=== PATIENT | female | born 1965 | race Caucasian/White ===

== ENCOUNTER → 2017-08-01 09:02 | Outpatient (CLI) | payer BC, SELFPAY ==
--- NOTE | 2017-08-01 09:16 | MM_ITS ---
MM Dig screening mamm BI w/CAD CAD Screening ORDERING PHYSICIAN : [facility] INDICATION: 52-year-old with no new complaints no hormones. Family history. Half sister with breast cancer: 53 years COMPARISON: August 2013 mammogram and ultrasound. Also February 2011 and November 2008 bilateral mammogram studies TECHNIQUE: Standard CC and MLO images were obtained. R2 CAD reviewed. Bilateral axillary cc view included FINDINGS: Moderately dense breast bilaterally with mild asymmetry. RIGHT BREAST:No new findings of significant concern LEFT BREAST: . No new findings of significant concern. Slightly more pronounced fibroglandular elements towards the deep lateral left breast on cc view dissipates on the axillary cc view, and are in keeping, & consistent with previous studies. Follow-up in one year adequate bilateral IMPRESSION: . Stable mammogram no new areas of significant concern . Bilateral follow-up in one year recommended BI-RADS Category: 2 Benign Finding(s) RECOMMENDED FOLLOW-UP: 1YR - 1 YEAR FOLLOW-UP (A letter has been sent to the patient regarding results of the study.) In
== END ==
PROVIDERS: Family Provider Internal Medicine Adolescent Medicine; PCP Nurse Practitioner Family; Visit Provider Nurse Practitioner Obstetrics & Gynecology
DX: Z12.31 Encounter for screening mammogram for malignant neoplasm of breast (principal)
CPT/HCPCS: 77067

== ENCOUNTER → 2017-09-22 11:32 | Outpatient (CLI) | payer BC, SELFPAY ==
[2017-09-22 14:39] LABS: Chol/HDL Ratio 3.8 (1-3.5); Cholesterol 286 mg/dL (140-200); HDL Cholesterol 75 mg/dL (29-89); LDL Cholesterol 175 mg/dL (0-130); Thyroid Stimulating Hormone 0.92 uIU/ml (0.358-3.740); Triglycerides 178 mg/dL (30-200); VLDL Cholesterol 36 mg/dL (0-40)
== END ==
PROVIDERS: Visit Provider Nurse Practitioner Family
DX: R07.89 Other chest pain (principal); E78.5 Hyperlipidemia, unspecified
CPT/HCPCS: 36415; 80061; 84443

== ENCOUNTER → 2017-09-27 12:11 | Outpatient (CLI) | payer BC, SELFPAY ==
--- NOTE | 2017-09-27 12:21 | NM_ITS ---
History and Indications: Hypertension, hyperlipidemia, chest pain and fatigue. Procedure: Patient exercised on Orion protocol 9 minutes, resting heart rate was 67 bpm resting blood pressure 131/73, with exercise maximum heart rate achieved was 1 46 bpm which is equal to 87% of the maximum predicted heart rate and a blood pressure was 190/90. Test was started due to shortness of breath patient denied any complained of chest pain. Patient has good exercise capacity achieved 10.1mets of workload on treadmill, the blood pressure response to exercise was adequate. Electrocardiogram: Resting electrocardiogram show sinus rhythm, with exercise there is less than 1.[address] segment depression noted from the baseline EKG. The EKG portion of the exercise Myoview is negative for ischemia. Cardiac stress and resting SPECT images: Cardiac stress and rest SPECT images were obtained using technetium 99 Myoview 32.7 mCi at stress and 10.3 mCi at rest. Gated SPECT further analysis of segmental wall motion and calculation of the ejection fraction also done. Cardiac stress and rest SPECT images show uniform myocardial activity without segmental perfusion abnormality, computer derived ejection fraction is 59% with no obvious regional wall motion abnormality right ventricle is normal size and contractility. Conclusion: 1. The EKG portion of the exercise Myoview is negative for ischemia. Patient has good exercise capacity achieved 10.1mets of workload on treadmill, the blood pressure response to exercise was adequate, there was no exercise-induced chest discomfort. 2. No obvious scintigraphic evidence of reversible ischemia seen, obturator derived ejection fraction 59% with no obvious regional wall motion abnormality, right ventricle is normal size and contractility. 3. Normal exercise Myoview study.
--- NOTE | 2017-09-27 12:41 | HMH.ITSHM ---
LAMOTRIAINE FLOXETINE DIAZEPAM AMLODIPINE LISINOPRIL MELATONIN NAPROXEN
== END ==
PROVIDERS: Family Provider Internal Medicine Adolescent Medicine; PCP Nurse Practitioner Family; Visit Provider Nurse Practitioner Family
DX: R07.89 Other chest pain (principal); I10 Essential (primary) hypertension; E78.5 Hyperlipidemia, unspecified
CPT/HCPCS: 78452; 93017; A9502

== ENCOUNTER → 2018-02-07 07:52 | Outpatient (CLI) | payer BC, SELFPAY ==
[2018-02-07 08:26] LABS: Basophils # 0.1 K/mm3 (0-0.2); Basophils % 0.9 % (0.1-2.0); Eosinophils # 0.3 K/mm3 (0.0-0.4); Hematocrit 40.6 % (37.0-47.0); Hemoglobin 13.1 g/dL (12.2-16.2); Lymphocytes # 2.2 K/mm3 (0.7-4.5); Mean Corpuscular HGB Conc 32.3 g/dL (31.8-35.4); Mean Corpuscular Hemoglobin 29.8 pg (27.0-31.2); Mean Corpuscular Volume 92.2 fl (81-99); Mean Platelet Volume 7.5 fl (7.4-10.4); Monocytes # 0.5 K/mm3 (0.1-1.0); Monocytes % 7.2 % (1.7-9.3); Neutrophils # 3.6 K/mm3 (1.8-7.8); Neutrophils % 53.8 % (37.0-80.0); Platelet Count 242 K/mm3 (142-424); Red Cell Distribution Width 13.3 % (11.5-17.5); White Blood Count 6.7 K/mm3 (4.8-10.8)
[2018-02-07 08:59] LABS: Alanine Aminotransferase 28 U/L (12-78); Albumin/Globulin Ratio 1.3 (1.1-1.8); Alkaline Phosphatase 122 U/L (46-116); Anion Gap 13.7 mEq/L (5-15); Aspartate Amino Transferase 11 U/L (15-37); Bilirubin,Total 0.4 mg/dL (0.2-1.0); Blood Urea Nitrogen 19 mg/dL (7-18); Calcium 9.5 mg/dL (8.5-10.1); Carbon Dioxide 30 mmol/L (21.0-32.0); Chloride 105 mmol/L (98-107); Chol/HDL Ratio 2.5 (1-3.5); Cholesterol 210 mg/dL (140-200); Creatinine,Serum 0.88 mg/dL (0.55-1.02); Estimated Glomerular Filt Rate 67 ml/min (>60); GFR (African American) 81 ML/MIN (>60); Globulin 3.2 gm/dl (1.3-3.2); Glucose 111 mg/dL (74-106); HDL Cholesterol 83 mg/dL (29-89); LDL Cholesterol 114 mg/dL (0-130); Potassium 3.7 mmoL/L (3.5-5.1); Sodium 145 mmol/L (136-145); Total Protein,Serum 7.2 gm/dL (6.4-8.2); Triglycerides 66 mg/dL (30-200); VLDL Cholesterol 13 mg/dL (0-40)
== END ==
PROVIDERS: PCP Internal Medicine Adolescent Medicine; Visit Provider Nurse Practitioner Family
DX: E78.5 Hyperlipidemia, unspecified (principal); I10 Essential (primary) hypertension; R05 Cough
CPT/HCPCS: 36415; 80053; 80061; 85025

== ENCOUNTER → 2018-06-01 11:02 | Outpatient (CLI) | payer MEDICAID, SELFPAY ==
[2018-06-01 11:29] LABS: INR 2.16 (0.9-1.1); Prothrombin Time 21.8 seconds (9.4-11.8)
== END ==
PROVIDERS: Visit Provider Student in an Organized Health Care Education/Training Program
DX: Z51.81 Encounter for therapeutic drug level monitoring (principal); Z79.01 Long term (current) use of anticoagulants
CPT/HCPCS: 36415; 85610

== ENCOUNTER → 2018-06-07 11:11 | Outpatient (CLI) | payer MEDICAID, SELFPAY ==
[2018-06-07 12:40] LABS: INR 1.58 (0.9-1.1); Prothrombin Time 16.1 seconds (9.4-11.8)
== END ==
PROVIDERS: PCP Internal Medicine Adolescent Medicine; Visit Provider Student in an Organized Health Care Education/Training Program
DX: Z51.81 Encounter for therapeutic drug level monitoring (principal); Z79.01 Long term (current) use of anticoagulants
CPT/HCPCS: 36415; 85610

== ENCOUNTER → 2018-06-12 12:36 | Outpatient (CLI) | payer MEDICAID, SELFPAY ==
[2018-06-12 13:09] LABS: INR 1.87 (0.9-1.1); Prothrombin Time 18.9 seconds (9.4-11.8)
== END ==
PROVIDERS: Visit Provider Student in an Organized Health Care Education/Training Program
DX: Z51.81 Encounter for therapeutic drug level monitoring (principal); Z79.01 Long term (current) use of anticoagulants
CPT/HCPCS: 36415; 85610

== ENCOUNTER → 2018-06-20 14:50 | Outpatient (CLI) | payer MEDICAID, SELFPAY ==
[2018-06-20 15:28] LABS: INR 1.82 (0.9-1.1); Prothrombin Time 18.4 seconds (9.4-11.8)
== END ==
PROVIDERS: Visit Provider Student in an Organized Health Care Education/Training Program
DX: Z51.81 Encounter for therapeutic drug level monitoring (principal); Z79.01 Long term (current) use of anticoagulants
CPT/HCPCS: 36415; 85610

== ENCOUNTER → 2018-06-26 10:40 | Outpatient (CLI) | payer MEDICAID, SELFPAY ==
[2018-06-26 12:26] LABS: INR 2.48 (0.9-1.1); Prothrombin Time 24.9 seconds (9.4-11.8)
== END ==
PROVIDERS: Visit Provider Student in an Organized Health Care Education/Training Program
DX: Z51.81 Encounter for therapeutic drug level monitoring (principal); Z79.01 Long term (current) use of anticoagulants
CPT/HCPCS: 36415; 85610

== ENCOUNTER → 2018-07-03 11:24 | Outpatient (CLI) | payer MEDICAID, SELFPAY ==
[2018-07-03 12:03] LABS: INR 3.11 (0.9-1.1)
== END ==
PROVIDERS: Visit Provider Student in an Organized Health Care Education/Training Program
DX: Z51.81 Encounter for therapeutic drug level monitoring (principal); Z79.01 Long term (current) use of anticoagulants
CPT/HCPCS: 36415; 85610

== ENCOUNTER → 2018-07-17 10:36 | Outpatient (CLI) | payer MEDICAID, SELFPAY ==
[2018-07-17 11:05] LABS: INR 1.86 (0.9-1.1); Prothrombin Time 18.8 seconds (9.4-11.8)
== END ==
PROVIDERS: Visit Provider Student in an Organized Health Care Education/Training Program
DX: Z51.81 Encounter for therapeutic drug level monitoring (principal); Z79.01 Long term (current) use of anticoagulants
CPT/HCPCS: 36415; 85610

== ENCOUNTER → 2018-07-20 12:02 | Outpatient (CLI) | payer MEDICAID, SELFPAY ==
[2018-07-20 13:18] LABS: Basophils # 0.1 K/mm3 (0-0.2); Eosinophils # 0.1 K/mm3 (0.0-0.4); Hematocrit 31.8 % (37.0-47.0); Hemoglobin 10.1 g/dL (12.2-16.2); Lymphocytes # 1.6 K/mm3 (0.7-4.5); Mean Corpuscular HGB Conc 31.7 g/dL (31.8-35.4); Mean Corpuscular Hemoglobin 27.4 pg (27.0-31.2); Mean Corpuscular Volume 86.5 fl (81-99); Mean Platelet Volume 7.4 fl (7.4-10.4); Monocytes # 0.3 K/mm3 (0.1-1.0); Monocytes % 5.6 % (1.7-9.3); Neutrophils # 3.4 K/mm3 (1.8-7.8); Neutrophils % 62.4 % (37.0-80.0); Platelet Count 275 K/mm3 (142-424); Red Blood Count 3.67 M/mm3 (4.20-5.40); Red Cell Distribution Width 15.5 % (11.5-17.5); White Blood Count 5.5 K/mm3 (4.8-10.8)
[2018-07-20 13:59] LABS: Alanine Aminotransferase 22 U/L (12-78); Albumin/Globulin Ratio 1.1 (1.1-1.8); Alkaline Phosphatase 140 U/L (46-116); Anion Gap 12.7 mEq/L (5-15); Aspartate Amino Transferase 9 U/L (15-37); Bilirubin,Total 0.3 mg/dL (0.2-1.0); Blood Urea Nitrogen 24 mg/dL (7-18); Calcium 9.3 mg/dL (8.5-10.1); Carbon Dioxide 30 mmol/L (21.0-32.0); Chloride 101 mmol/L (98-107); Creatinine,Serum 1.25 mg/dL (0.55-1.02); Estimated Glomerular Filt Rate 45 ml/min (>60); GFR (African American) 54 ML/MIN (>60); Globulin 3.6 gm/dl (1.3-3.2); Glucose 95 mg/dL (74-106); Potassium 3.7 mmoL/L (3.5-5.1); Sodium 140 mmol/L (136-145); Total Protein,Serum 7.6 gm/dL (6.4-8.2)
[2018-07-22 04:10] LABS: PTT-LA 51.4 sec (0.0-51.9); dRVVT Mix 41.3 sec (0.0-47.0)
[2018-07-22 11:01] LABS: Anti-Thrombin III Antigen 122 % (72-124); Lupus Reflex Interpretation Comment: (.); Protein S Antigen, Total 64 % (60-150); Protein S, Free 31 % (57-157)
[2018-07-22 12:11] LABS: Peripheral Smear Review Scanned Result
[2018-07-24 14:16] LABS: Antinuclear Antibodies, IFA Positive (.)
[2018-07-24 14:19] LABS: Protein C Antigen 74 % (60-150)
== END ==
PROVIDERS: Visit Provider Internal Medicine Adolescent Medicine
DX: I82.5Y2 Chronic embolism and thrombosis of unspecified deep veins of left proximal lower extremity (principal); Z79.01 Long term (current) use of anticoagulants
CPT/HCPCS: 36415; 80053; 81241; 85025; 85301; 85302; 85305; 85306; 85613; 86038

== ENCOUNTER → 2018-07-31 14:33 | Outpatient (CLI) | payer MEDICAID, SELFPAY ==
[2018-07-31 16:24] LABS: INR 1.64 (0.9-1.1); Prothrombin Time 16.7 seconds (9.4-11.8)
== END ==
PROVIDERS: Visit Provider Student in an Organized Health Care Education/Training Program
DX: Z51.81 Encounter for therapeutic drug level monitoring (principal); Z79.01 Long term (current) use of anticoagulants
CPT/HCPCS: 36415; 85610

== ENCOUNTER → 2018-08-07 10:58 | Outpatient (CLI) | payer MEDICAID, SELFPAY ==
[2018-08-07 12:04] LABS: INR 1.86 (0.9-1.1); Prothrombin Time 18.8 seconds (9.4-11.8)
== END ==
PROVIDERS: Visit Provider Student in an Organized Health Care Education/Training Program
DX: Z51.81 Encounter for therapeutic drug level monitoring (principal); Z79.01 Long term (current) use of anticoagulants
CPT/HCPCS: 36415; 85610

== ENCOUNTER → 2018-08-11 12:15 | Outpatient (CLI) | payer MEDICAID, SELFPAY ==
[2018-08-11 12:42] LABS: INR 2.86 (0.9-1.1); Prothrombin Time 28.6 seconds (9.4-11.8)
== END ==
PROVIDERS: Visit Provider Student in an Organized Health Care Education/Training Program
DX: Z51.81 Encounter for therapeutic drug level monitoring (principal); Z79.01 Long term (current) use of anticoagulants
CPT/HCPCS: 36415; 85610

== ENCOUNTER → 2018-08-18 13:24 | Outpatient (CLI) | payer MEDICAID, SELFPAY ==
[2018-08-18 15:01] LABS: INR 3.07 (0.9-1.1); Prothrombin Time 30.6 seconds (9.4-11.8)
== END ==
PROVIDERS: Visit Provider Student in an Organized Health Care Education/Training Program
DX: Z51.81 Encounter for therapeutic drug level monitoring (principal); Z79.01 Long term (current) use of anticoagulants
CPT/HCPCS: 36415; 85610

== ENCOUNTER → 2018-09-01 13:41 | Outpatient (CLI) | payer MEDICAID, SELFPAY ==
[2018-09-01 14:33] LABS: INR 2.54 (0.9-1.1); Prothrombin Time 25.5 seconds (9.4-11.8)
== END ==
PROVIDERS: Visit Provider Student in an Organized Health Care Education/Training Program
DX: Z79.01 Long term (current) use of anticoagulants (principal); Z51.81 Encounter for therapeutic drug level monitoring
CPT/HCPCS: 36415; 85610

== ENCOUNTER 2018-09-05 11:00 | Outpatient (RCR) | payer MEDICAID, SELFPAY | END 2018-09-05 11:05 | disposition home or self-care (01) | LOC: PT 11:00 | PROVIDERS: Visit Provider Surgery Vascular Surgery | DX: O87.1 Deep phlebothrombosis in the puerperium (principal); Z79.01 Long term (current) use of anticoagulants | CPT/HCPCS: 97110; 97140; 97162 ==

== ENCOUNTER → 2018-09-15 12:07 | Outpatient (CLI) | payer MEDICAID, SELFPAY ==
[2018-09-15 12:39] LABS: INR 3.06 (0.9-1.1); Prothrombin Time 30.5 seconds (9.4-11.8)
== END ==
PROVIDERS: Visit Provider Student in an Organized Health Care Education/Training Program
DX: Z51.81 Encounter for therapeutic drug level monitoring (principal); Z79.01 Long term (current) use of anticoagulants
CPT/HCPCS: 36415; 85610

== ENCOUNTER → 2018-09-29 13:22 | Outpatient (CLI) | payer MEDICAID, SELFPAY ==
[2018-09-29 13:59] LABS: INR 2.82 (0.9-1.1); Prothrombin Time 28.2 seconds (9.4-11.8)
== END ==
PROVIDERS: Visit Provider Student in an Organized Health Care Education/Training Program
DX: Z51.81 Encounter for therapeutic drug level monitoring (principal); Z79.01 Long term (current) use of anticoagulants
CPT/HCPCS: 36415; 85610

== ENCOUNTER 2018-10-13 12:41 | Outpatient (CLI) | payer MEDICAID, SELFPAY ==
[2018-10-13 14:43] LABS: PHA INR Fingerstick 3.1 (0.9-1.1)
--- NOTE | 2018-12-15 11:28 | HMH.PHAINT ---
12/15/18--SPOKE WITH PATIENT ABOUT WARFARIN/LOVENOX AFTER SURGERY THIS PAST TUESDAY. PATIENT INDICATED SHE HAS NOT RESTARTED WARFARIN YET. SHE IS FOLLOWING UP WITH MD NEXT TUESDAY AND WILL LET US KNOW AT THAT POINT WHEN SHE WILL RESTART THE WARFARIN. MD CALLED PATIENT 3 BOXES OF LOVENOX FOR BID DOSING UPON DISCHARGE. NOLVIA BARROSO, PHARMD
== END 2018-10-13 14:45 | disposition home or self-care (01) ==
LOC: ACC 12:44
PROVIDERS: PCP Nurse Practitioner Family; Visit Provider Nurse Practitioner Family
DX: Z51.81 Encounter for therapeutic drug level monitoring (principal); Z79.01 Long term (current) use of anticoagulants
CPT/HCPCS: 85610; 99211; G0463

== ENCOUNTER → 2018-11-10 16:32 | Outpatient (CLI) | payer MEDICAID, SELFPAY ==
--- NOTE | 2018-11-10 16:36 | MM_ITS ---
MM Dig screening mamm BI w/CAD ORDERING PHYSICIAN : Chen Dodson APRN PATIENT AGE: 53 years GENDER: Female COMPARISON: August 2013, July bilateral mammogram studies INDICATION: ITS.Routine screening mammogram. No hormones. No new complaints. Family history. Half sister with breast cancer age 55 TECHNIQUE: Standard CC and MLO images were obtained. R2 CAD reviewed. Additional axillary cc view bilateral FINDINGS: Moderately dense breast Scattered moderately dense fibroglandular elements most evident central breast and extending towards upper outer quadrant. Mild heterogeneous pattern. Similar appearance dates back to 2010 with no discrete new findings. No discrete dominant mass nor suspicious calcifications RIGHT BREAST:No discrete new areas of concern. axillary cc view is helpful with this view stable since 2014. The slightly nodular character deep breast on cc view and MLO today diminishes and dissipates on the axillary cc view is well Appearance superior right breast on MLO view is similar to 2014 as well and can be followed LEFT BREAST:Stable left breast. No new areas of concern. Moderate density IMPRESSION: No significant new areas of concern. Bilateral follow-up in one year recommended Moderate density breast bilaterally,. BI-RADS Category: 2 Benign Finding(s) RECOMMENDED FOLLOW-UP: 1YR 1 YEAR FOLLOW-UP (A letter has been sent to the patient regarding results of the study.)
== END ==
PROVIDERS: PCP Internal Medicine Adolescent Medicine; Visit Provider Nurse Practitioner Family
DX: Z12.31 Encounter for screening mammogram for malignant neoplasm of breast (principal)
CPT/HCPCS: 77067

== ENCOUNTER 2018-11-17 13:11 | Outpatient (CLI) | payer MEDICAID, SELFPAY ==
[2018-11-17 13:33] LABS: PHA INR Fingerstick 2.8 (0.9-1.1)
== END 2018-11-17 13:34 | disposition home or self-care (01) ==
LOC: ACC 13:12
PROVIDERS: PCP Internal Medicine Adolescent Medicine; Visit Provider Nurse Practitioner Family
DX: Z51.81 Encounter for therapeutic drug level monitoring (principal); Z79.01 Long term (current) use of anticoagulants
CPT/HCPCS: 85610; 99211; G0463

== ENCOUNTER 2018-12-08 11:16 | Outpatient (CLI) | payer MEDICAID, SELFPAY ==
[2018-12-08 13:00] LABS: INR 1.74 (0.9-1.1); Prothrombin Time 17.6 seconds (9.4-11.8)
[2018-12-08 15:14] LABS: PHA INR Fingerstick 2.7 (0.9-1.1)
== END 2018-12-08 15:26 | disposition home or self-care (01) ==
PROVIDERS: PCP Nurse Practitioner Family; Visit Provider Nurse Practitioner Family
DX: Z51.81 Encounter for therapeutic drug level monitoring (principal); Z79.01 Long term (current) use of anticoagulants
CPT/HCPCS: 36415; 85610; 99211; G0463

== ENCOUNTER → 2019-01-15 13:23 | Outpatient (CLI) | payer MEDICAID, SELFPAY ==
[2019-01-15 14:29] LABS: INR 1.18 (0.9-1.1); Prothrombin Time 12.2 seconds (9.4-11.8)
== END ==
PROVIDERS: PCP Internal Medicine Adolescent Medicine; Visit Provider Nurse Practitioner Family
DX: Z51.81 Encounter for therapeutic drug level monitoring (principal); Z79.01 Long term (current) use of anticoagulants
CPT/HCPCS: 36415; 85610

== ENCOUNTER → 2019-01-18 10:47 | Outpatient (CLI) | payer MEDICAID, SELFPAY ==
[2019-01-18 11:19] LABS: INR 1.76 (0.9-1.1); Prothrombin Time 17.8 seconds (9.4-11.8)
== END ==
PROVIDERS: Visit Provider Nurse Practitioner Family
DX: Z51.81 Encounter for therapeutic drug level monitoring (principal); Z79.01 Long term (current) use of anticoagulants
CPT/HCPCS: 36415; 85610

== ENCOUNTER → 2019-04-12 13:58 | Outpatient (CLI) | payer OTHER, SELFPAY ==
--- NOTE | 2019-04-12 14:03 | XR_ITS ---
PROCEDURE: XR CERVICAL SPINE 5V CLINICAL INDICATION: NECK PAIN COMPARISON: No exams were available for comparison FINDINGS: There is reversal of the cervical lordosis at the C4-C5 level with 3 mm anterolisthesis of C4. Multilevel degenerative disc disease is present at C5-6 and C6-C7. Anterior syndesmophytes are present at C3, C4, C5, C6, and C7. There is foraminal narrowing on the right at C3-C4 C4-C5 and on the left at C3-C4 C4-C5 and C5-C6. Prominent facet arthritic changes are present at C3, C4, C5 and C6 on the left. There is Lala manav noted in the upper thoracic spine IMPRESSION: 1. Cervical spondylosis with degenerative disc disease and facet arthritic change with foraminal narrowing and reversal of the lordosis as described above. Dictated by: Ryan Hyde MD 04/12/2019 14:40 Electronically signed by Ryan Hyde MD in [place] 04/12/2019 14:40
== END ==
PROVIDERS: PCP Nurse Practitioner Family; Visit Provider Nurse Practitioner Family
DX: M54.2 Cervicalgia (principal)
CPT/HCPCS: 72050

== ENCOUNTER 2019-04-16 14:00 | Outpatient (RCR) | payer OTHER, SELFPAY ==
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
== END 2019-04-16 14:05 | disposition home or self-care (01) ==
LOC: PT 14:00
PROVIDERS: Visit Provider Nurse Practitioner Family
DX: M54.2 Cervicalgia (principal); M54.5 Low back pain; M25.512 Pain in left shoulder; M25.511 Pain in right shoulder
CPT/HCPCS: 97010; 97014; 97035; 97110; 97140; 97163; G0283

== ENCOUNTER → 2019-05-01 10:58 | Outpatient (CLI) | payer OTHER, SELFPAY ==
[2019-05-01 11:27] LABS: Eosinophils # 0.1 K/mm3 (0.0-0.4); Eosinophils % 2.5 % (0.1-12.0); Hematocrit 35.1 % (37.0-47.0); Hemoglobin 11.1 g/dL (12.2-16.2); Lymphocytes % 34.4 % (10-50); Mean Corpuscular HGB Conc 31.5 g/dL (31.8-35.4); Mean Corpuscular Hemoglobin 27.5 pg (27.0-31.2); Mean Corpuscular Volume 87.2 fl (81-99); Mean Platelet Volume 8.1 fl (7.4-10.4); Monocytes # 0.3 K/mm3 (0.1-1.0); Monocytes % 11.2 % (1.7-9.3); Neutrophils # 1.5 K/mm3 (1.8-7.8); Neutrophils % 50.9 % (37.0-80.0); Platelet Count 168 K/mm3 (142-424); Red Blood Count 4.03 M/mm3 (4.20-5.40); Red Cell Distribution Width 14.9 % (11.5-17.5); White Blood Count 2.9 K/mm3 (4.8-10.8)
[2019-05-01 12:23] LABS: Alanine Aminotransferase 37 U/L (12-78); Albumin Level 3.2 gm/dL (3.4-5.0); Albumin/Globulin Ratio 0.9 (1.1-1.8); Alkaline Phosphatase 137 U/L (46-116); Anion Gap 13.8 mEq/L (5-15); Aspartate Amino Transferase 21 U/L (15-37); Bilirubin,Total 0.3 mg/dL (0.2-1.0); Blood Urea Nitrogen 18 mg/dL (7-18); Carbon Dioxide 26 mmol/L (21.0-32.0); Chloride 103 mmol/L (98-107); Creatinine,Serum 1.05 mg/dL (0.55-1.02); Estimated Glomerular Filt Rate 55 ml/min (>60); GFR (African American) 66 ML/MIN (>60); Globulin 3.4 gm/dl (1.3-3.2); Glucose 90 mg/dL (74-106); Potassium 3.8 mmoL/L (3.5-5.1); Sodium 139 mmol/L (136-145); Total Protein,Serum 6.6 gm/dL (6.4-8.2)
== END ==
PROVIDERS: Visit Provider Obstetrics & Gynecology Gynecologic Oncology
DX: C54.1 Malignant neoplasm of endometrium (principal)
CPT/HCPCS: 80053; 85025

== ENCOUNTER → 2019-05-18 12:14 | Outpatient (CLI) | payer OTHER, SELFPAY ==
[2019-05-18 12:39] LABS: Basophils % 0.2 % (0.1-2.0); Eosinophils # 0.1 K/mm3 (0.0-0.4); Eosinophils % 1.7 % (0.1-12.0); Hematocrit 36.7 % (37.0-47.0); Hemoglobin 11.4 g/dL (12.2-16.2); Lymphocytes # 1.7 K/mm3 (0.7-4.5); Lymphocytes % 45.8 % (10-50); Mean Corpuscular HGB Conc 31.1 g/dL (31.8-35.4); Mean Corpuscular Hemoglobin 27.7 pg (27.0-31.2); Mean Corpuscular Volume 89.1 fl (81-99); Mean Platelet Volume 8.1 fl (7.4-10.4); Monocytes # 0.1 K/mm3 (0.1-1.0); Monocytes % 1.4 % (1.7-9.3); Neutrophils # 1.9 K/mm3 (1.8-7.8); Platelet Count 210 K/mm3 (142-424); Red Blood Count 4.12 M/mm3 (4.20-5.40); Red Cell Distribution Width 16.1 % (11.5-17.5); White Blood Count 3.6 K/mm3 (4.8-10.8)
[2019-05-18 14:11] LABS: Alanine Aminotransferase 38 U/L (12-78); Albumin Level 3.2 gm/dL (3.4-5.0); Alkaline Phosphatase 104 U/L (46-116); Bilirubin,Total 0.2 mg/dL (0.2-1.0); Blood Urea Nitrogen 26 mg/dL (7-18); Calcium 8.9 mg/dL (8.5-10.1); Carbon Dioxide 25 mmol/L (21.0-32.0); Chloride 102 mmol/L (98-107); Creatinine,Serum 0.99 mg/dL (0.55-1.02); Estimated Glomerular Filt Rate 58 ml/min (>60); GFR (African American) 71 ML/MIN (>60); Globulin 3.2 gm/dl (1.3-3.2); Glucose 140 mg/dL (74-106); Sodium 138 mmol/L (136-145); Total Protein,Serum 6.4 gm/dL (6.4-8.2)
[2019-05-18 14:37] LABS: Aspartate Amino Transferase 13 U/L (15-37)
== END ==
PROVIDERS: Visit Provider Obstetrics & Gynecology Gynecologic Oncology
DX: C54.1 Malignant neoplasm of endometrium (principal)
CPT/HCPCS: 36415; 80053; 85025

== ENCOUNTER → 2019-05-28 12:16 | Outpatient (CLI) | payer OTHER, SELFPAY ==
[2019-05-28 13:09] LABS: Basophils % 0.8 % (0.1-2.0); Eosinophils % 0.5 % (0.1-12.0); Hematocrit 34.3 % (37.0-47.0); Hemoglobin 10.6 g/dL (12.2-16.2); Lymphocytes # 1.4 K/mm3 (0.7-4.5); Lymphocytes % 49.5 % (10-50); Mean Corpuscular HGB Conc 30.8 g/dL (31.8-35.4); Mean Corpuscular Hemoglobin 26.9 pg (27.0-31.2); Mean Corpuscular Volume 87.1 fl (81-99); Mean Platelet Volume 7.3 fl (7.4-10.4); Monocytes # 0.3 K/mm3 (0.1-1.0); Monocytes % 9.6 % (1.7-9.3); Neutrophils # 1.1 K/mm3 (1.8-7.8); Neutrophils % 39.6 % (37.0-80.0); Platelet Count 142 K/mm3 (142-424); Red Blood Count 3.93 M/mm3 (4.20-5.40); Red Cell Distribution Width 18.1 % (11.5-17.5); White Blood Count 2.8 K/mm3 (4.8-10.8)
[2019-05-28 14:28] LABS: Alanine Aminotransferase 45 U/L (12-78); Albumin Level 3.3 gm/dL (3.4-5.0); Alkaline Phosphatase 123 U/L (46-116); Aspartate Amino Transferase 16 U/L (15-37); Bilirubin,Total 0.2 mg/dL (0.2-1.0); Blood Urea Nitrogen 20 mg/dL (7-18); Calcium 9.1 mg/dL (8.5-10.1); Carbon Dioxide 26 mmol/L (21.0-32.0); Chloride 104 mmol/L (98-107); Creatinine,Serum 0.93 mg/dL (0.55-1.02); Estimated Glomerular Filt Rate 63 ml/min (>60); GFR (African American) 76 ML/MIN (>60); Globulin 3.2 gm/dl (1.3-3.2); Glucose 95 mg/dL (74-106); Sodium 141 mmol/L (136-145); Total Protein,Serum 6.5 gm/dL (6.4-8.2)
== END ==
PROVIDERS: Visit Provider Obstetrics & Gynecology Gynecologic Oncology
DX: C54.1 Malignant neoplasm of endometrium (principal)
CPT/HCPCS: 36415; 80053; 85025

== ENCOUNTER → 2019-06-07 14:43 | Outpatient (CLI) | payer OTHER, SELFPAY ==
[2019-06-07 15:03] LABS: Basophils % 0.5 % (0.1-2.0); Eosinophils % 0.5 % (0.1-12.0); Hematocrit 34.6 % (37.0-47.0); Hemoglobin 10.6 g/dL (12.2-16.2); Lymphocytes # 1.6 K/mm3 (0.7-4.5); Lymphocytes % 45.6 % (10-50); Mean Corpuscular HGB Conc 30.7 g/dL (31.8-35.4); Mean Corpuscular Hemoglobin 27.2 pg (27.0-31.2); Mean Corpuscular Volume 88.5 fl (81-99); Mean Platelet Volume 8.7 fl (7.4-10.4); Monocytes # 0.1 K/mm3 (0.1-1.0); Monocytes % 1.9 % (1.7-9.3); Neutrophils # 1.8 K/mm3 (1.8-7.8); Neutrophils % 51.6 % (37.0-80.0); Platelet Count 186 K/mm3 (142-424); Red Cell Distribution Width 18.2 % (11.5-17.5); White Blood Count 3.4 K/mm3 (4.8-10.8)
[2019-06-07 15:47] LABS: Alanine Aminotransferase 30 U/L (12-78); Albumin Level 3.5 gm/dL (3.4-5.0); Albumin/Globulin Ratio 1.3 (1.1-1.8); Alkaline Phosphatase 104 U/L (46-116); Anion Gap 13.7 mEq/L (5-15); Bilirubin,Total 0.2 mg/dL (0.2-1.0); Blood Urea Nitrogen 24 mg/dL (7-18); Calcium 8.9 mg/dL (8.5-10.1); Carbon Dioxide 25 mmol/L (21.0-32.0); Chloride 102 mmol/L (98-107); Creatinine,Serum 1.11 mg/dL (0.55-1.02); Estimated Glomerular Filt Rate 51 ml/min (>60); GFR (African American) 62 ML/MIN (>60); Globulin 2.8 gm/dl (1.3-3.2); Glucose 119 mg/dL (74-106); Potassium 3.7 mmoL/L (3.5-5.1); Sodium 137 mmol/L (136-145); Total Protein,Serum 6.3 gm/dL (6.4-8.2)
[2019-06-07 15:59] LABS: Aspartate Amino Transferase 8 U/L (15-37)
== END ==
PROVIDERS: Visit Provider Obstetrics & Gynecology Gynecologic Oncology
DX: C54.1 Malignant neoplasm of endometrium (principal)
CPT/HCPCS: 36415; 80053; 85025

== ENCOUNTER → 2019-06-28 14:01 | Outpatient (CLI) | payer OTHER, SELFPAY ==
[2019-06-28 14:26] LABS: Basophils % 0.3 % (0.1-2.0); Eosinophils % 0.8 % (0.1-12.0); Hematocrit 32.5 % (37.0-47.0); Hemoglobin 10.3 g/dL (12.2-16.2); Lymphocytes # 1.5 K/mm3 (0.7-4.5); Mean Corpuscular HGB Conc 31.7 g/dL (31.8-35.4); Mean Corpuscular Hemoglobin 28.9 pg (27.0-31.2); Mean Corpuscular Volume 91.2 fl (81-99); Mean Platelet Volume 8.8 fl (7.4-10.4); Monocytes # 0.2 K/mm3 (0.1-1.0); Monocytes % 5.8 % (1.7-9.3); Neutrophils # 2.4 K/mm3 (1.8-7.8); Neutrophils % 58.1 % (37.0-80.0); Platelet Count 147 K/mm3 (142-424); Red Blood Count 3.56 M/mm3 (4.20-5.40); Red Cell Distribution Width 18.9 % (11.5-17.5); White Blood Count 4.2 K/mm3 (4.8-10.8)
[2019-06-28 15:48] LABS: Alanine Aminotransferase 27 U/L (12-78); Albumin Level 3.6 gm/dL (3.4-5.0); Albumin/Globulin Ratio 1.3 (1.1-1.8); Alkaline Phosphatase 112 U/L (46-116); Anion Gap 12.9 mEq/L (5-15); Aspartate Amino Transferase 13 U/L (15-37); Bilirubin,Total 0.3 mg/dL (0.2-1.0); Blood Urea Nitrogen 23 mg/dL (7-18); Calcium 9.2 mg/dL (8.5-10.1); Carbon Dioxide 29 mmol/L (21.0-32.0); Chloride 106 mmol/L (98-107); Creatinine,Serum 1.24 mg/dL (0.55-1.02); Estimated Glomerular Filt Rate 45 ml/min (>60); GFR (African American) 54 ML/MIN (>60); Globulin 2.8 gm/dl (1.3-3.2); Glucose 96 mg/dL (74-106); Potassium 3.9 mmoL/L (3.5-5.1); Sodium 144 mmol/L (136-145); Total Protein,Serum 6.4 gm/dL (6.4-8.2)
== END ==
PROVIDERS: Visit Provider Obstetrics & Gynecology Gynecologic Oncology
DX: C54.1 Malignant neoplasm of endometrium (principal)
CPT/HCPCS: 36415; 80053; 85025

== ENCOUNTER → 2019-07-09 13:10 | Outpatient (CLI) | payer OTHER, SELFPAY ==
[2019-07-09 14:39] LABS: Basophils % 0.5 % (0.1-2.0); Eosinophils # 0.1 K/mm3 (0.0-0.4); Eosinophils % 1.6 % (0.1-12.0); Hematocrit 31.6 % (37.0-47.0); Hemoglobin 10.4 g/dL (12.2-16.2); Lymphocytes # 1.5 K/mm3 (0.7-4.5); Mean Corpuscular HGB Conc 32.8 g/dL (31.8-35.4); Mean Corpuscular Hemoglobin 29.2 pg (27.0-31.2); Mean Corpuscular Volume 88.9 fl (81-99); Mean Platelet Volume 7.4 fl (7.4-10.4); Monocytes # 0.2 K/mm3 (0.1-1.0); Monocytes % 6.4 % (1.7-9.3); Neutrophils # 1.7 K/mm3 (1.8-7.8); Neutrophils % 49.5 % (37.0-80.0); Platelet Count 223 K/mm3 (142-424); Red Blood Count 3.55 M/mm3 (4.20-5.40); Red Cell Distribution Width 18.2 % (11.5-17.5); White Blood Count 3.5 K/mm3 (4.8-10.8)
[2019-07-09 15:27] LABS: Alanine Aminotransferase 37 U/L (12-78); Albumin Level 3.8 g/dL (3.4-5.0); Albumin/Globulin Ratio 1.2 (1.1-1.8); Alkaline Phosphatase 107 U/L (46-116); Anion Gap 16.2 mEq/L (5-15); Aspartate Amino Transferase 18 U/L (15-37); Bilirubin,Total 0.3 mg/dL (0.2-1.0); Blood Urea Nitrogen 17 mg/dL (7-18); Calcium 9.5 mg/dL (8.5-10.1); Carbon Dioxide 25 mmol/L (21.0-32.0); Chloride 104 mmol/L (98-107); Creatinine,Serum 0.95 mg/dL (0.55-1.02); Estimated Glomerular Filt Rate 61 ml/min (>60); GFR (African American) 74 ML/MIN (>60); Globulin 3.1 gm/dl (1.3-3.2); Glucose 98 mg/dL (74-106); Potassium 4.2 mmoL/L (3.5-5.1); Sodium 141 mmol/L (137-145); Total Protein,Serum 6.9 g/dL (6.4-8.2)
== END ==
PROVIDERS: Visit Provider Obstetrics & Gynecology Gynecologic Oncology
DX: C54.1 Malignant neoplasm of endometrium (principal)
CPT/HCPCS: 36415; 80053; 85025

== ENCOUNTER → 2019-07-20 13:52 | Outpatient (CLI) | payer OTHER, SELFPAY ==
[2019-07-20 14:13] LABS: Basophils % 0.4 % (0.1-2.0); Eosinophils % 0.8 % (0.1-12.0); Hematocrit 31.8 % (37.0-47.0); Lymphocytes # 1.5 K/mm3 (0.7-4.5); Lymphocytes % 33.5 % (10-50); Mean Corpuscular HGB Conc 31.5 g/dL (31.8-35.4); Mean Corpuscular Volume 95.1 fl (81-99); Mean Platelet Volume 8.1 fl (7.4-10.4); Monocytes # 0.3 K/mm3 (0.1-1.0); Monocytes % 6.3 % (1.7-9.3); Neutrophils # 2.7 K/mm3 (1.8-7.8); Platelet Count 163 K/mm3 (142-424); Red Blood Count 3.34 M/mm3 (4.20-5.40); Red Cell Distribution Width 20.5 % (11.5-17.5); White Blood Count 4.5 K/mm3 (4.8-10.8)
[2019-07-20 17:31] LABS: Chloride 102 mmol/L (98-107); Potassium 3.9 mmoL/L (3.5-5.1); Sodium 138 mmol/L (136-145)
[2019-07-20 17:33] LABS: Blood Urea Nitrogen 16 mg/dl (7-17); Estimated Glomerular Filt Rate 52 ml/min (>60); GFR (African American) 62 ML/MIN (>60)
[2019-07-20 17:34] LABS: Alanine Aminotransferase 53 U/L (12-78); Albumin Level 4.3 g/dl (3.5-5.0); Albumin/Globulin Ratio 1.6 (1.1-1.8); Alkaline Phosphatase 126 U/L (38-126); Anion Gap 14.9 mEq/L (5-15); Aspartate Amino Transferase 43 U/L (14-36); Bilirubin,Total 0.4 mg/dl (0.2-1.3); Carbon Dioxide 25 mmol/L (22.0-30.0); Globulin 2.7 g/dL (1.3-3.2); Glucose 97 mg/dl (74-100)
== END ==
PROVIDERS: Visit Provider Obstetrics & Gynecology Gynecologic Oncology
DX: C54.1 Malignant neoplasm of endometrium (principal)
CPT/HCPCS: 36415; 80053; 85025

== ENCOUNTER → 2019-08-16 12:29 | Outpatient (CLI) | payer OTHER, SELFPAY ==
[2019-08-16 13:08] LABS: Basophils % 0.4 % (0.1-2.0); Eosinophils % 0.5 % (0.1-12.0); Hematocrit 29.6 % (37.0-47.0); Hemoglobin 9.7 g/dL (12.2-16.2); Lymphocytes # 1.4 K/mm3 (0.7-4.5); Lymphocytes % 36.4 % (10-50); Mean Corpuscular HGB Conc 32.8 g/dL (31.8-35.4); Mean Corpuscular Hemoglobin 32.9 pg (27.0-31.2); Mean Corpuscular Volume 100.2 fl (81-99); Mean Platelet Volume 8.2 fl (7.4-10.4); Monocytes # 0.2 K/mm3 (0.1-1.0); Monocytes % 6.1 % (1.7-9.3); Neutrophils # 2.2 K/mm3 (1.8-7.8); Neutrophils % 56.6 % (37.0-80.0); Platelet Count 144 K/mm3 (142-424); Red Blood Count 2.95 M/mm3 (4.20-5.40); Red Cell Distribution Width 16.8 % (11.5-17.5); White Blood Count 3.9 K/mm3 (4.8-10.8)
[2019-08-16 17:20] LABS: Alanine Aminotransferase 41 U/L (12-78); Albumin Level 4.2 g/dl (3.5-5.0); Albumin/Globulin Ratio 1.6 (1.1-1.8); Alkaline Phosphatase 106 U/L (38-126); Aspartate Amino Transferase 36 U/L (14-36); Bilirubin,Total 0.3 mg/dl (0.2-1.3); Blood Urea Nitrogen 14 mg/dl (7-17); Calcium 10.1 mg/dl (8.4-10.2); Carbon Dioxide 25 mmol/L (22.0-30.0); Chloride 102 mmol/L (98-107); Estimated Glomerular Filt Rate 52 ml/min (>60); GFR (African American) 62 ML/MIN (>60); Globulin 2.6 g/dL (1.3-3.2); Glucose 153 mg/dl (74-100); Sodium 134 mmol/L (136-145); Total Protein,Serum 6.8 g/dl (6.3-8.2)
== END ==
PROVIDERS: Visit Provider Obstetrics & Gynecology Gynecologic Oncology
DX: C54.1 Malignant neoplasm of endometrium (principal)
CPT/HCPCS: 36415; 80053; 85025

== ENCOUNTER → 2019-08-23 14:13 | Outpatient (CLI) | payer OTHER, SELFPAY ==
[2019-08-23 14:31] LABS: Basophils % 0.5 % (0.1-2.0); Eosinophils % 1.1 % (0.1-12.0); Hemoglobin 9.2 g/dL (12.2-16.2); Lymphocytes # 1.3 K/mm3 (0.7-4.5); Lymphocytes % 38.5 % (10-50); Mean Corpuscular HGB Conc 31.8 g/dL (31.8-35.4); Mean Corpuscular Hemoglobin 32.6 pg (27.0-31.2); Mean Corpuscular Volume 102.6 fl (81-99); Mean Platelet Volume 8.5 fl (7.4-10.4); Monocytes # 0.2 K/mm3 (0.1-1.0); Monocytes % 6.2 % (1.7-9.3); Neutrophils # 1.8 K/mm3 (1.8-7.8); Neutrophils % 53.7 % (37.0-80.0); Platelet Count 169 K/mm3 (142-424); Red Blood Count 2.83 M/mm3 (4.20-5.40); Red Cell Distribution Width 16.4 % (11.5-17.5); White Blood Count 3.3 K/mm3 (4.8-10.8)
[2019-08-23 15:25] LABS: Chloride 107 mmol/L (98-107); Sodium 139 mmol/L (136-145)
[2019-08-23 15:26] LABS: Potassium 3.6 mmoL/L (3.5-5.1)
[2019-08-23 15:28] LABS: Alanine Aminotransferase 30 U/L (12-78); Albumin Level 3.9 g/dl (3.5-5.0); Albumin/Globulin Ratio 1.6 (1.1-1.8); Alkaline Phosphatase 106 U/L (38-126); Anion Gap 10.6 mEq/L (5-15); Aspartate Amino Transferase 26 U/L (14-36); Bilirubin,Total 0.2 mg/dl (0.2-1.3); Blood Urea Nitrogen 17 mg/dl (7-17); Carbon Dioxide 25 mmol/L (22.0-30.0); Estimated Glomerular Filt Rate 58 ml/min (>60); GFR (African American) 70 ML/MIN (>60); Globulin 2.4 g/dL (1.3-3.2); Total Protein,Serum 6.3 g/dl (6.3-8.2)
[2019-08-23 15:29] LABS: Calcium 9.4 mg/dl (8.4-10.2); Glucose 145 mg/dl (74-100)
== END ==
PROVIDERS: Visit Provider Obstetrics & Gynecology Gynecologic Oncology
DX: C54.1 Malignant neoplasm of endometrium (principal)
CPT/HCPCS: 36415; 80053; 85025

== ENCOUNTER → 2019-09-19 13:14 | Outpatient (CLI) | payer OTHER, SELFPAY ==
[2019-09-19 14:13] LABS: Alanine Aminotransferase 36 U/L (12-78); Albumin Level 4.1 g/dl (3.5-5.0); Albumin/Globulin Ratio 1.6 (1.1-1.8); Alkaline Phosphatase 111 U/L (38-126); Aspartate Amino Transferase 38 U/L (14-36); Bilirubin,Total 0.2 mg/dl (0.2-1.3); Blood Urea Nitrogen 17 mg/dl (7-17); Calcium 9.7 mg/dl (8.4-10.2); Carbon Dioxide 27 mmol/L (22.0-30.0); Chloride 107 mmol/L (98-107); Estimated Glomerular Filt Rate 43 ml/min (>60); GFR (African American) 51 ML/MIN (>60); Globulin 2.5 g/dL (1.3-3.2); Glucose 97 mg/dl (74-100); Sodium 139 mmol/L (136-145); Total Protein,Serum 6.6 g/dl (6.3-8.2)
[2019-09-19 14:15] LABS: Basophils % 0.6 % (0.1-2.0); Eosinophils % 0.9 % (0.1-12.0); Hematocrit 30.5 % (37.0-47.0); Lymphocytes # 1.1 K/mm3 (0.7-4.5); Lymphocytes % 31.6 % (10-50); Mean Corpuscular HGB Conc 32.7 g/dL (31.8-35.4); Mean Corpuscular Hemoglobin 32.3 pg (27.0-31.2); Mean Corpuscular Volume 98.8 fl (81-99); Mean Platelet Volume 8.7 fl (7.4-10.4); Monocytes # 0.2 K/mm3 (0.1-1.0); Monocytes % 6.9 % (1.7-9.3); Neutrophils # 2.1 K/mm3 (1.8-7.8); Platelet Count 191 K/mm3 (142-424); Red Blood Count 3.09 M/mm3 (4.20-5.40); White Blood Count 3.4 K/mm3 (4.8-10.8)
== END ==
PROVIDERS: Visit Provider Obstetrics & Gynecology Gynecologic Oncology
DX: C54.1 Malignant neoplasm of endometrium (principal)
CPT/HCPCS: 36415; 80053; 85025

== ENCOUNTER → 2019-12-25 12:02 | Outpatient (CLI) | payer OTHER, SELFPAY ==
--- NOTE | 2019-12-25 12:10 | XR_ITS ---
PROCEDURE: XR CHEST 2V CLINICAL HISTORY: SOB Nonsmoker. COMPARISON: CXR2V XR chest 2V from 09/21/2017 FINDINGS: No acute bony abnormalities. Significant diffuse bony demineralization. Redemonstrated moderate thoracic dextroscoliosis with a is single Lala manav in-situ. The cardiomediastinal silhouette and pulmonary vascularity are within normal limits. The lungs are hyperinflated, consistent with COPD. No worrisome lung nodule, mass or infiltrates identified. There is straightening of the normal thoracic kyphosis. IMPRESSION: 1. No acute findings. Stable chest. Dictated by: Candice Brown 12/25/2019 12:44 Electronically signed by Candice Brown in [place] 12/25/2019 12:44
[2019-12-26 13:13] LABS: Covid-19 Nasal PCR Sendout Lex NOT DETECTED
== END ==
PROVIDERS: Visit Provider Nurse Practitioner Family
DX: Z03.818 Encounter for observation for suspected exposure to other biological agents ruled out (principal); R06.02 Shortness of breath
CPT/HCPCS: 71046; U0004

== ENCOUNTER → 2020-01-07 12:55 | Outpatient (CLI) | payer OTHER, SELFPAY ==
[2020-01-07 13:21] LABS: Basophils % 0.7 % (0.1-2.0); Eosinophils # 0.2 K/mm3 (0.0-0.4); Eosinophils % 2.5 % (0.1-12.0); Hematocrit 36.2 % (37.0-47.0); Hemoglobin 12.3 g/dL (12.2-16.2); Lymphocytes # 1.6 K/mm3 (0.7-4.5); Lymphocytes % 27.7 % (10-50); Mean Corpuscular HGB Conc 33.8 g/dL (31.8-35.4); Mean Corpuscular Hemoglobin 30.1 pg (27.0-31.2); Mean Corpuscular Volume 88.9 fl (81-99); Mean Platelet Volume 7.9 fl (7.4-10.4); Monocytes # 0.4 K/mm3 (0.1-1.0); Monocytes % 6.1 % (1.7-9.3); Neutrophils # 3.7 K/mm3 (1.8-7.8); Neutrophils % 62.9 % (37.0-80.0); Platelet Count 216 K/mm3 (142-424); Red Blood Count 4.08 M/mm3 (4.20-5.40); Red Cell Distribution Width 14.3 % (11.5-17.5); White Blood Count 5.9 K/mm3 (4.8-10.8)
[2020-01-07 13:45] LABS: INR 1.23 (0.9-1.1); Prothrombin Time 12.5 seconds (9.4-11.8)
[2020-01-07 14:15] LABS: Anion Gap 15.4 mEq/L (5-15); Blood Urea Nitrogen 23 mg/dl (7-17); Calcium 10.6 mg/dl (8.4-10.2); Carbon Dioxide 29 mmol/L (22.0-30.0); Chloride 99 mmol/L (98-107); Estimated Glomerular Filt Rate 58 ml/min (>60); GFR (African American) 70 ML/MIN (>60); Glucose 120 mg/dl (74-100); Potassium 4.4 mmoL/L (3.5-5.1); Sodium 139 mmol/L (136-145)
== END ==
PROVIDERS: Visit Provider Surgery
DX: Z01.818 Encounter for other preprocedural examination (principal); Z51.81 Encounter for therapeutic drug level monitoring; Z79.01 Long term (current) use of anticoagulants
CPT/HCPCS: 36415; 80048; 85025; 85610

== ENCOUNTER 2020-01-18 12:59 | Emergency (ER) | payer OTHER, SELFPAY ==
--- NOTE | 2020-01-18 13:13 | XR_ITS ---
PROCEDURE: XR CHEST 2V CLINICAL HISTORY: cough COMPARISON: CR CXR2V XR chest 2V from 09/21/2017 CR XR CHEST 2V from 12/25/2019 FINDINGS: The cardiomediastinal silhouette and pulmonary vascularity are within normal limits. The lungs are clear without infiltrates, suspicious nodules, or pleural effusions. Again noted is a single Lala manav stabilizing the diffuse dextroscoliotic curvature of the thoracic spine. No acute bony abnormalities. IMPRESSION: No acute findings. Dictated by: Dr. Gerald Cuello MD 01/18/2020 13:42 Dr. Gerald Cuello MD in [place] 01/18/2020 13:42
[2020-01-18 13:18] VITALS: BP 131/87; PULSE 88; RESP 20; TEMP 36.9; O2SAT 99; BMI 29.0
--- NOTE | 2020-01-18 13:27 | HMH.EDUTC ---
[facility] [facility] [place] Clinical Impression: URI (upper respiratory infection) Qualifiers: URI type: unspecified URI Qualified Code(s): J06.9 - Acute upper respiratory infection, unspecified Disposition: Home, Self-Care Condition on Discharge: Good Instructions: Sinusitis, Acute Bronchitis, DI for Sinusitis, Albuterol Oral Inhalation Additional Instructions: ? Start antibiotic today. Be sure to complete entire prescription even if feeling better ? Monitor temp. Tylenol every 4 hours as needed and / or ibuprofen every 6 hours as needed ( As long as your primary care physician has told you that it ok to take both. For fever/aches/pains ER if no less than 101 despite Tylenol or Motrin ? Humidifier/vaporizer or hot steamy shower ? Inhaler every 4-6 hours as needed like we discussed. If unsure how to use it, ask pharmacist to demonstrate how. Should help open airways and improve cough, wheezing, and shortness of breath ? *Follow up IMMEDIATELY for new or worsening of symptoms OR no noticeable improvement over the next 48-72 hours. 911 immediately for any life threatening symptoms such as chest pain or difficulty breathing Prescriptions: Azithromycin [Z-Toby 250mg Tab] 250 mg PO DIRECTED #6 tab Transmission Status: Received by [id number] Referrals: Chen Dodson APRN [Primary Care Provider] - As needed Time of Disposition: 14:02 Medical Decision Making - Johan Inquiry Pt receiving controlled substance: No Johan was queried for this patient: No Vital Signs: 01/18/20 13:18 01/18/20 14:14 Temperature 98.4 F 98.4 F Temperature Source Oral Pulse Rate 88 Pulse Rate [Right Brachial] 88 Respiratory Rate 20 20 Blood Pressure 131/87 Blood Pressure [Right Arm] 131/87 Blood Pressure Mean [Right Arm] 101 Blood Pressure Source [Right Arm] Automatic Cuff Blood Pressure Position [Right Arm] Sitting 02 Sat by Pulse Oximetry 99 Oxygen Delivery Method Room Air Orders (Tests/Meds): ED MEDICATIONS Discontinued Medications Generic Name Dose Route Start Last Admin Trade Name Freq PRN Reason Stop Dose Admin Albuterol/Ipratropium 3 ml 01/18/20 13:44 01/18/20 13:47 Duoneb 3ml Neb IH 01/18/20 13:45 3 ml ONCE ONE Administration Methylprednisolone Sodium Succinate 125 mg 01/18/20 13:58 08/21/20 14:07 Solu-Medrol 125mg/2ml Vial IM 01/18/20 13:59 125 mg ONCE ONE Administration - Radiology Data #1 Image(s): Chest Image Reviewed: Yes I have reviewed radiologist's interpretation IMPRESSION: No acute findings. Medical Decision Narrative: Patient states that she has taken SoluMedrol and Azithromycin before without complications or reactions After Duo Neb wheezing no longer audible and patient reports feeling much better and no longer feeling short of breath [facility] [place] [facility] [place] - General Stated complaint: soa Time Seen by Provider: 01/18/20 13:28 Mode of Arrival: Ambulatory Source of Information: Patient Limitations: No Limitations Description of Symptoms (Recalled from Triage Doc. by RN): PATIENT C/O COUGH AND SOA SINCE LAST NIGHT HEENT Symptoms (Recalled from RN notes): No Resp Symptoms (Recalled from RN notes): Yes Skin Symptoms (Recalled from RN notes): No MS Symptoms (Recalled from RN notes): No Functional Status (Recalled from RN notes): WNL - History of Present Illness Provider Complaint: Patient states that she has a history of Bronchitis States that yesterday she started feeling a little short of breath and wheezing States that she has had a cough and feels like she has congestion in her chest area that she is unable to cough up States that she has also been having some nasal congestion states that this morning she was still having symptoms so she called her PCP office and they wasnt in so they told her to come to the [facility] - Related Data Home Medications Medication Instructions Recorded Confirmed diazepam 5 mg tablet 5 mg PO BIDP PRN 06/23/18 01/18/20 lisinopril 20 1 tab
[2020-01-18 14:14] VITALS: BP 131/87; PULSE 88; RESP 20; TEMP 36.9; O2SAT 99
== END 2020-01-18 14:23 | disposition home or self-care (01) ==
PROVIDERS: Emergency Provider Nurse Practitioner; PCP Nurse Practitioner Family
DX: J06.9 Acute upper respiratory infection, unspecified (principal); I10 Essential (primary) hypertension; Z90.710 Acquired absence of both cervix and uterus
CPT/HCPCS: 71046; 96372; 99202

== ENCOUNTER → 2020-05-19 16:26 | Outpatient (CLI) | payer OTHER, SELFPAY ==
--- NOTE | 2020-05-19 16:28 | MM_ITS ---
PROCEDURE: MM DIG SCREENING MAMM BI W/CAD Digital Breast Tomosynthesis Included CLINICAL INDICATION: SCREENING There is no personal or family history of breast cancer. COMPARISON: MG DMSB DIG MAMM-SCREEN JYO from 08/31/2013 MG SCBI MM Dig screening mamm BI w/CAD from 08/01/2017 MG DIG MAMM-SCREEN JOY from 11/10/2018 TECHNIQUE: Standard CC and MLO images and 3D Tomosynthesis was obtained. R2 CAD reviewed. FINDINGS: Moderate diffuse fibroglandular densities are seen in the central portions of both breasts. The findings are bilateral and symmetrical. There is no suspicious lesion and no suspicious microcalcifications. IMPRESSION: Moderate breast density with no suspicious lesions seen BI-RAD Category: 1 Negative FOLLOW-UP: 1YR 1 Year Follow-up (A letter has been sent to the patient regarding results of the study.) Dictated by: Dr. Gerald Cuello MD 05/23/2020 14:31 Dr. Gerald Cuello MD in [place] 05/23/2020 14:31
== END ==
PROVIDERS: PCP Nurse Practitioner Family; Visit Provider Internal Medicine Adolescent Medicine
DX: Z12.31 Encounter for screening mammogram for malignant neoplasm of breast (principal)
CPT/HCPCS: 77063; 77067

== ENCOUNTER → 2020-06-11 09:26 | Outpatient (CLI) | payer OTHER, SELFPAY ==
[2020-06-11 09:47] LABS: Basophils % 0.6 % (0.1-2.0); Eosinophils # 0.1 K/mm3 (0.0-0.4); Eosinophils % 2.6 % (0.1-12.0); Hematocrit 44.6 % (37.0-47.0); Hemoglobin 13.6 g/dL (12.2-16.2); Lymphocytes # 1.3 K/mm3 (0.7-4.5); Lymphocytes % 26.4 % (10-50); Mean Corpuscular HGB Conc 30.4 g/dL (31.8-35.4); Mean Corpuscular Hemoglobin 30.1 pg (27.0-31.2); Mean Platelet Volume 7.8 fl (7.4-10.4); Monocytes # 0.2 K/mm3 (0.1-1.0); Monocytes % 4.2 % (1.7-9.3); Neutrophils # 3.4 K/mm3 (1.8-7.8); Neutrophils % 66.2 % (37.0-80.0); Platelet Count 228 K/mm3 (142-424); Red Cell Distribution Width 14.6 % (11.5-17.5); White Blood Count 5.1 K/mm3 (4.8-10.8)
[2020-06-11 11:28] LABS: Alanine Aminotransferase 34 U/L (12-78); Albumin Level 4.5 g/dl (3.5-5.0); Albumin/Globulin Ratio 1.7 (1.1-1.8); Alkaline Phosphatase 163 U/L (38-126); Anion Gap 13.1 mEq/L (5-15); Aspartate Amino Transferase 28 U/L (14-36); Bilirubin,Total 0.5 mg/dl (0.2-1.3); Blood Urea Nitrogen 25 mg/dl (7-17); Calcium 10.2 mg/dl (8.4-10.2); Carbon Dioxide 29 mmol/L (22.0-30.0); Chloride 103 mmol/L (98-107); Chol/HDL Ratio 2.9 (1-3.5); Cholesterol 215 mg/dl (140-200); Estimated Glomerular Filt Rate 51 ml/min (>60); GFR (African American) 62 ML/MIN (>60); Globulin 2.6 g/dL (1.3-3.2); Glucose 130 mg/dl (74-100); HDL Cholesterol 73 mg/dl (40-60); Potassium 4.1 mmoL/L (3.5-5.1); Sodium 141 mmol/L (136-145); Total Protein,Serum 7.1 g/dl (6.3-8.2); Triglycerides 108 mg/dl (30-150); VLDL Cholesterol 22 mg/dL (0-40)
[2020-06-11 11:39] LABS: Direct LDL Cholesterol 97.26 mg/dL (100-129)
[2020-06-11 12:03] LABS: Thyroid Stimulating Hormone 0.31 uIU/mL (0.465-4.68)
[2020-06-12 11:19] LABS: Hemoglobin A1C 6.2 % (4.0-6.0)
[2020-06-12 11:26] LABS: Free T4 (Free Thyroxine) 1.24 ng/dl (0.78-2.19)
== END ==
PROVIDERS: Internal Medicine Adolescent Medicine; Visit Provider Nurse Practitioner Family
DX: I10 Essential (primary) hypertension (principal); E78.5 Hyperlipidemia, unspecified; R63.5 Abnormal weight gain; R79.89 Other specified abnormal findings of blood chemistry; R73.09 Other abnormal glucose; I82.542 Chronic embolism and thrombosis of left tibial vein
CPT/HCPCS: 36415; 80053; 80061; 83036; 84439; 84443; 85025

== ENCOUNTER → 2020-06-25 10:05 | Outpatient (CLI) | payer OTHER, SELFPAY ==
[2020-06-25 11:13] LABS: Coronavirus 19 IgG Antibody Positive (Negative); Coronavirus 19 IgM Antibody Negative (Negative)
== END ==
PROVIDERS: Visit Provider Surgery
DX: Z01.812 Encounter for preprocedural laboratory examination (principal); Z20.822 Contact with and (suspected) exposure to COVID-19; Z86.16 Personal history of COVID-19; Z12.11 Encounter for screening for malignant neoplasm of colon
CPT/HCPCS: 36415; 83036; 84439; 86328

== ENCOUNTER 2020-06-26 09:04 | Day surgery (SDC) | payer OTHER, SELFPAY ==
[2020-06-24 11:02] VITALS: BMI 30.7
[2020-06-26 09:25] VITALS: BP 130/94; PULSE 73; RESP 18; TEMP 36.4; O2SAT 97
--- NOTE | 2020-06-26 09:33 | HMH.ANESCL ---
[facility] Anesthesia Checklist - Patient Identification Patient Identification: Arm Band, Verbal (Name & ) - Structural Data Admitted From: Home Planned Operative Procedure/s: colon Consent for Planned Operative Procedure(s) Verified: Yes Verified Documents: History and Physical - NPO Status Verified Time NPO: 00:00 - Chart Verification Results Verified: CBC, BMP - Additional verifications Patient : No Anesthesia Reactions: No Hx Blood Transfusions: No Blood Transfusion Reaction: No Cephalosporin Allergy: No Previous Colonoscopy: No - Cardiovascular Assessment Heart Sounds: S1 & S2 Pulse Strength: Baseline Pulse Rhythm: Regular Peripheral Edema: No - Airway Assessment C-Spine Mobility Assessed: Yes TMJ Mobility Assessed: Yes Dentition: Good Dentition - Neurological Assessment Level of Consciousness: Awake, Alert, Appropriate Hx Seizures: No Numbness or tingling in extremities: No - Anesthesia Plan Anesthesia Risk discussed: Yes Anesthesia Plan: Verified ASA Class: III Anesthesia Type: MAC [facility] History I have reviewed the patient's past medical history: Yes Medical History: Reports:: Cancer, Deep Vein Thrombosis, Hypertension, Peripheral Artery Disease Denies:: Diabetes Mellitus Type 1, Diabetes Mellitus Type 2, Gastrointestinal Bleed, MRSA, Pulmonary Embolism *Have you ever received a pneumonia vaccine?: No *Have you received a flu vaccine this season?: No Anesthesia experience/problems:: none Other Surgeries: Yes: Hysterectomy-Total Amputation: No - *Social History Smoking Status: Never smoker Alcohol Intake: current Alcohol Intake Frequency:: holidays/special occasions only Substance Use Type: denies use *Occupational Status:: other *Travel in the last 8 weeks: None Family Hx:: Stroke
[2020-06-26 09:48] VITALS: O2SAT 97
[2020-06-26 10:29] VITALS: BP 93/64; PULSE 75; RESP 18; TEMP 36.1; O2SAT 95
--- NOTE | 2020-06-26 10:30 | P.PCN_ITS ---
- Procedure: Date: 06/26/20 Patient Date of :: 1965 Procedure Performed:: Colonoscopy with polypectomy Indications:: Screening Performing Provider:: Gonzales Rabago MD Referring Provider:: . Sedation:: Monitored anesthesia care Procedure:: After informed consent was obtained the patient was taken to the endoscopy suite. Sedation ensued after the patient was transferred to the left lateral decubitus position. Pulse, blood pressure, and oxygen saturation were monitored throughout the procedure. Digital rectal exam revealed no significant ab normality. The colonoscope was placed in position. The entire colon was evaluated. The colonoscope was carefully removed and the patient was transferred to recovery in stable condition. Please see findings and specimens below for detail. Findings:: Bowel preparation fair to moderate Moderate spasticity Polyps (see specimens) Specimens:: Sessile proximal right colon polyp (cold snare) 8 mm lobulated polyp at 12 cm (hot snare) Recommendations:: Timing of repeat colonoscopy is pending pathology but will likely be between 2-3 years secondary to size/nature of polyps, fair to moderate bowel preparation, and spasticity. Complications:: No immediate Estimated blood obtained (mL): 1
[2020-06-26 10:39] VITALS: BP 99/72; PULSE 75; RESP 187; O2SAT 100
[2020-06-26 10:49] VITALS: BP 112/76; PULSE 72; RESP 18; O2SAT 98
[2020-06-26 10:59] VITALS: BP 108/70; PULSE 74; RESP 18; O2SAT 98
== END 2020-06-26 11:03 | disposition home or self-care (01) ==
LOC: OUTP 09:06
PROVIDERS: PCP Nurse Practitioner Family; Visit Provider Surgery
PROC: 0DJD8ZZ Inspection of Lower Intestinal Tract, Via Natural or Artificial Opening Endoscopic (ICD-10-PCS; CPT 45385; principal; 2020-06-26 10:30)
DX: Z12.11 Encounter for screening for malignant neoplasm of colon (principal); K58.9 Irritable bowel syndrome, unspecified; K63.5 Polyp of colon; Z85.9 Personal history of malignant neoplasm, unspecified; I82.409 Acute embolism and thrombosis of unspecified deep veins of unspecified lower extremity; I10 Essential (primary) hypertension; I73.9 Peripheral vascular disease, unspecified; Z79.899 Other long term (current) drug therapy
CPT/HCPCS: 45385

== ENCOUNTER → 2021-02-17 10:02 | Outpatient (CLI) | payer MEDICARE, OTHER, SELFPAY | PROVIDERS: Visit Provider Surgery | DX: Z01.812 Encounter for preprocedural laboratory examination (principal); Z11.52 Encounter for screening for COVID-19; Z12.11 Encounter for screening for malignant neoplasm of colon; Z86.010 Personal history of colon polyps | CPT/HCPCS: C9803; U0003; U0005 ==

== ENCOUNTER 2021-02-19 09:43 | Day surgery (SDC) | payer MEDICARE, OTHER, SELFPAY ==
[2021-02-17 10:20] VITALS: BMI 29.0
[2021-02-19 10:02] VITALS: BP 142/82; PULSE 83; RESP 20; TEMP 36.2; O2SAT 98
--- NOTE | 2021-02-19 10:08 | HMH.ANESCL ---
[facility] Anesthesia Checklist - Patient Identification Patient Identification: Arm Band, Verbal (Name & ) - Structural Data Admitted From: Home Planned Operative Procedure/s: colon Consent for Planned Operative Procedure(s) Verified: Yes Verified Documents: History and Physical - NPO Status Verified Time NPO: 00:00 - Additional verifications Patient : No Anesthesia Reactions: No Hx Blood Transfusions: No Blood Transfusion Reaction: No Cephalosporin Allergy: No Previous Colonoscopy: Yes - Cardiovascular Assessment Heart Sounds: S1 & S2 Pulse Strength: Baseline Pulse Rhythm: Regular Peripheral Edema: No - Airway Assessment C-Spine Mobility Assessed: Yes TMJ Mobility Assessed: Yes Dentition: Good Dentition - Neurological Assessment Level of Consciousness: Awake, Alert, Appropriate Hx Seizures: No Numbness or tingling in extremities: No - Anesthesia Plan Anesthesia Risk discussed: Yes Anesthesia Plan: Verified ASA Class: II Anesthesia Type: MAC [facility] History I have reviewed the patient's past medical history: Yes Medical History: Reports:: Cancer (endometrial ca-remission), Deep Vein Thrombosis, Hyperlipidemia, Hypertension, Peripheral Artery Disease, Peripheral Vascular Disease Denies:: Diabetes Mellitus Type 1, Diabetes Mellitus Type 2, Gastrointestinal Bleed, Internal Pacemaker, MRSA, Pulmonary Embolism, Seizures *Have you ever received a pneumonia vaccine?: No *Have you received a flu vaccine this season?: Yes Other Medical History: Denies: Blood Transfusion Reaction Anesthesia experience/problems:: none Other Surgeries: Yes: Colonoscopy, Hysterectomy-Total. No: Pacemaker Amputation: No - *Social History Last grade of school completed: High school graduate Smoking Status: Never smoker Alcohol Intake: current Alcohol Intake Frequency:: 0-2 drinks per day Substance Use Type: denies use *Occupational Status:: disabled *Travel in the last 8 weeks: None Family Hx:: Stroke
[2021-02-19 10:15] VITALS: O2SAT 97
--- NOTE | 2021-02-19 10:52 | P.PCN_ITS ---
- Procedure: Date: 02/19/21 Patient Date of :: 1965 Procedure Performed:: Colonoscopy with polypectomy and biopsy Indications:: History of serrated adenoma Performing Provider:: Gonzales Rabago MD Referring Provider:: . Sedation:: Monitored anesthesia care Procedure:: After informed consent was obtained the patient was taken to the endoscopy zac te. Sedation ensued after the patient was transferred to the left lateral decubitus position. Pulse, blood pressure, and oxygen saturation were monitored throughout the procedure. Digital rectal exam revealed no significant abnormality. The colonoscope was placed in position. The entire colon was evaluated. The colonoscope was carefully removed and the patient was transferred to recovery in stable condition. Please see findings and specimens below for detail. Findings:: Bowel preparation relatively poor Hemorrhoidal tags Focal inflammation versus adjacent ridge polyps of the proximal right colon (multiple biopsies taken...both areas tattooed) Sessile polyp of the right colon Specimens:: Multiple biopsies of focal inflammation versus ridge polyp of right colon Proximal right colon polyp (snare) Recommendations:: Further evaluation/management pending pathology. If the patient has multiple persistent serrated adenomas of the right colon, short-term repeat colonoscopy by the gastroenterology service is warranted. She may ultimately require surgical resection. If all above pathology is essentially benign, a colonoscopy in 2-3 years is reasonable. Complications:: No immediate Estimated blood obtained (mL): 1
[2021-02-19 10:55] VITALS: BP 105/72; PULSE 74; RESP 16; TEMP 36.4; O2SAT 95
[2021-02-19 11:05] VITALS: BP 117/79; PULSE 73; RESP 16; O2SAT 97
[2021-02-19 11:15] VITALS: BP 129/76; PULSE 73; RESP 16; O2SAT 97
[2021-02-19 11:25] VITALS: BP 123/74; PULSE 64; RESP 16; O2SAT 100
== END 2021-02-19 11:25 | disposition home or self-care (01) ==
LOC: OUTP 09:47
PROVIDERS: PCP Nurse Practitioner Family; Visit Provider Surgery
PROC: 0DJD8ZZ Inspection of Lower Intestinal Tract, Via Natural or Artificial Opening Endoscopic (ICD-10-PCS; principal; 2021-02-19 10:30)
DX: Z12.11 Encounter for screening for malignant neoplasm of colon (principal); Z86.010 Personal history of colon polyps; K64.0 First degree hemorrhoids; K63.5 Polyp of colon; E78.5 Hyperlipidemia, unspecified; I10 Essential (primary) hypertension; I73.9 Peripheral vascular disease, unspecified; Z85.41 Personal history of malignant neoplasm of cervix uteri; Z86.718 Personal history of other venous thrombosis and embolism; Z82.3 Family history of stroke; Z79.899 Other long term (current) drug therapy
CPT/HCPCS: 45385; 88305

== ENCOUNTER → 2021-06-15 11:45 | Outpatient (CLI) | payer MEDICARE, OTHER, SELFPAY | PROVIDERS: PCP Internal Medicine Adolescent Medicine; Visit Provider Internal Medicine | DX: Z01.818 Encounter for other preprocedural examination (principal); Z11.52 Encounter for screening for COVID-19 | CPT/HCPCS: C9803; U0003; U0005 ==

== ENCOUNTER → 2021-09-16 11:56 | Outpatient (CLI) | payer MEDICARE, OTHER, SELFPAY | PROVIDERS: Visit Provider Surgery | DX: Z01.812 Encounter for preprocedural laboratory examination (principal); Z11.52 Encounter for screening for COVID-19; Z13.810 Encounter for screening for upper gastrointestinal disorder | CPT/HCPCS: C9803; U0003; U0005 ==

== ENCOUNTER 2021-09-18 07:34 | Day surgery (SDC) | payer MEDICARE, OTHER, SELFPAY ==
[2021-09-18 07:51] VITALS: BP 120/75; PULSE 85; RESP 16; TEMP 36.5; O2SAT 100; BMI 29.0
--- NOTE | 2021-09-18 08:07 | P.PN_ITS ---
[facility] Anesthesia Checklist - Patient Identification Patient Identification: Arm Band - Structural Data Admitted From: Home Planned Operative Procedure/s: EGD Consent for Planned Operative Procedure(s) Verified: Yes - NPO Status Verified Time NPO: 00:00 - Additional verifications Anesthesia Reactions: No Hx Blood Transfusions: No Blood Transfusion Reaction: No - Airway Assessment C-Spine Mobility Assessed: Yes TMJ Mobility Assessed: Yes Dentition: Poor Dentition - Neurological Assessment Level of Consciousness: Awake Hx Seizures: No Numbness or tingling in extremities: No - Anesthesia Plan Anesthesia Risk discussed: Yes Anesthesia Plan: Verified ASA Class: III Anesthesia Type: MAC [facility] History I have reviewed the patient's past medical history: Yes Medical History: Reports:: Anxiety, Cancer, Deep Vein Thrombosis, Depression, Hyperlipidemia, Hypertension, Peripheral Artery Disease, Peripheral Vascular Disease Denies:: Diabetes Mellitus Type 1, Diabetes Mellitus Type 2, Gastrointestinal Bleed, Internal Pacemaker, MRSA, Pulmonary Embolism, Seizures *Have you ever received a pneumonia vaccine?: No *Have you received a flu vaccine this season?: Yes Other Medical History: Reports: Other (Bipolar). Denies: Blood Transfusion Reaction Anesthesia experience/problems:: Stopped breathing per patient Other Surgeries: Yes: Colonoscopy, Hysterectomy-Total. No: Pacemaker Amputation: No - *Social History Smoking Status: Never smoker Alcohol Intake: current Alcohol Intake Frequency:: 0-2 drinks per day Substance Use Type: denies use *Occupational Status:: disabled *Travel in the last 8 weeks: None Family Hx:: Stroke, Hyperlipidemia, Hypertension
[2021-09-18 09:14] VITALS: O2SAT 100
--- NOTE | 2021-09-18 09:29 | P.PCN_ITS ---
- Procedure: Date: 09/18/21 Patient Date of :: 1965 Procedure Performed:: Esophagogastroduodenoscopy with biopsies Indications:: Patient is a pleasant 56-year-old female referred by Magali Kurtz for possible upper endoscopy. She has a history of endometrial carcinoma. She was undergoing recent routine PET scanning. This revealed persistent moderate FDG uptake in the distal esophagus without CT correlate. Upper endoscopy was recommended. Was felt that this could be due to reflux. Patient does give a history over the past 6 months of what she describes as partially vomiting . Usually in the evening she has regurgitation of acid consistent with waterbrash when she is sleeping. She does have a known history of gallstones and she does ask about this. She only has some right-sided shoulder pain. She wonders what could be done if she could keep her gallbladder as it is a vital organ . She does not take any medicine for reflux. Please note that she had only stopped her Xarelto, which she takes for pulmonary embolism, for 1 day. She has had some ongoing reflux type symptoms. Performing Provider:: Esdras Truong MD Referring Provider:: Les Smallwood MD Sedation:: MAC sedation Procedure:: Patient was taken to endoscopy procedure room. She was positioned in lateral decubitus position. Adequate intravenous sedation was achieved with anesthesia titration propofol. Olympus endoscope was inserted via the oropharynx. Esophagus was cannulated. She has some tortuosity of the esophagus consistent with possible esophageal dysmotility. Gastroesophageal junction was encountered actually at 30 cm. Stomach was cannulated and insufflated. Retroflexion revealed moderate sliding hiatal hernia. She had some diffuse mild g astropathy/gastritis. Gastric antral mucosal biopsy was obtained for CLOtest for H. pylori. Gastric biopsies obtained. Pylorus was traversed. Duodenum appeared unremarkable. Endoscope was withdrawn into the distal esophagus. Several biopsies were obtained of the gastroesophageal junction. Few biopsies were obtained just proximal to this. Stomach was desufflated and endoscope was withdrawn. Findings:: Possible esophageal dysmotility Moderate sliding hiatal hernia Probable distal esophagitis at gastroesophageal junction Mild gastritis Recommendations:: Much of the findings on PET scan and her symptomatology likely secondary to sliding hiatal hernia. May benefit from acid reducing agents. If symptoms persist may require consideration of referral for hiatal hernia repair. May require gallbladder ultrasound for her findings on imaging of gallstones which seem to be possibly becoming more symptomatic. Complications:: None immediately apparent Estimated blood obtained (mL): 3
[2021-09-18 09:30] VITALS: BP 118/64; PULSE 82; RESP 18; TEMP 36.1; O2SAT 89
[2021-09-18 09:40] VITALS: BP 116/81; PULSE 78; RESP 18; O2SAT 96
[2021-09-18 09:49] VITALS: BP 112/82; PULSE 71; RESP 18; O2SAT 98
[2021-09-18 09:56] VITALS: BP 112/76; PULSE 71; RESP 18; O2SAT 98
== END 2021-09-18 09:58 | disposition home or self-care (01) ==
LOC: OUTP 07:35
PROVIDERS: PCP Internal Medicine Adolescent Medicine; Visit Provider Surgery
PROC: 0DJ08ZZ Inspection of Upper Intestinal Tract, Via Natural or Artificial Opening Endoscopic (ICD-10-PCS; CPT 43235; principal; 2021-09-18 08:30)
DX: K22.4 Dyskinesia of esophagus (principal); K22.9 Disease of esophagus, unspecified; K29.70 Gastritis, unspecified, without bleeding; K44.9 Diaphragmatic hernia without obstruction or gangrene; Z85.42 Personal history of malignant neoplasm of other parts of uterus; E78.5 Hyperlipidemia, unspecified; I10 Essential (primary) hypertension; I73.9 Peripheral vascular disease, unspecified; F41.9 Anxiety disorder, unspecified; F32.A Depression, unspecified; F31.9 Bipolar disorder, unspecified; Z82.3 Family history of stroke; Z82.49 Family history of ischemic heart disease and other diseases of the circulatory system; Z83.438 Family history of other disorder of lipoprotein metabolism and other lipidemia
CPT/HCPCS: 43239; 87339

== ENCOUNTER 2021-12-17 10:44 | Emergency (ER) | payer MEDICARE, OTHER, SELFPAY ==
[2021-12-17] VITALS (7 sets, daily range): BP systolic 127–142; BP diastolic 73–86; PULSE 66–76; RESP 16; TEMP 36.6; O2SAT 96–99; BMI 29.0
--- NOTE | 2021-12-17 10:51 | ECG_ITS ---
APPROVED REPORT Exam: Resting ECG HR:72 bpm ECG Measurements Heart Rate 72 AXES NH 151 P 37 QRSd 82 QRS 56 QT 406 T 62 QTc 430 Conclusion SINUS RHYTHM NORMAL ECG UNCONFIRMED REPORT Electronically signed by : Les Smallwood MD 12/18/2021 15:36:23
--- NOTE | 2021-12-17 10:54 | XR_ITS ---
FINAL REPORT CLINICAL HISTORY: weakness COMPARISON: 01/18/2020 FINDINGS: SINGLE-VIEW CHEST The heart size is normal. The mediastinum is normal. The lungs are clear. There is no pneumothorax. The osseous structures demonstrate dextroscoliosis. Spinal rods are present. IMPRESSION: No acute cardiopulmonary process. Reviewed, Interpreted and Dictated by Esdras Stock III, MD Transcribed by Mae Ham Authenticated and [facility]
--- NOTE | 2021-12-17 11:25 | PC.NURSE ---
UA sent to lab; pt hooked back up to monitor and has no other needs at this time. Pt aware that we are waiting on lab results at this time and has no other needs. Lights are out and patient is resting. Call light within reach
[2021-12-17 11:30] LABS: Coronavirus 19, PCR Not Detected (NotDetected); Influenza A, PCR Not Detected (NotDetected); Influenza B, PCR Not Detected (NotDetected); Microscopic, Urine URINE MICROSCOPIC (MICROSCOPIC)
[2021-12-17 11:37] LABS: Basophils % 0.3 % (0.1-2.0); Eosinophils % 0.9 % (0.1-12.0); Hematocrit 28.6 % (37.0-47.0); Hemoglobin 9.7 g/dL (12.2-16.2); Lymphocytes # 0.7 K/mm3 (0.7-4.5); Mean Corpuscular HGB Conc 34.1 g/dL (31.8-35.4); Mean Corpuscular Hemoglobin 33.2 pg (27.0-31.2); Mean Corpuscular Volume 97.6 fl (81-99); Mean Platelet Volume 8.9 fl (7.4-10.4); Monocytes % 1.2 % (1.7-9.3); Neutrophils # 0.1 K/mm3 (1.8-7.8); Neutrophils % 16.5 % (37.0-80.0); Platelet Count 67 K/mm3 (142-424); Red Blood Count 2.93 M/mm3 (4.20-5.40); Red Cell Distribution Width 14.9 % (11.5-17.5)
[2021-12-17 11:40] LABS: Appearance,Urine CLEAR (Clear); Bilirubin,Urine Negative (Negative); Blood, Urine TRACE-I (Negative); Color,Urine YELLOW (Yellow); Glucose,Urine (UA) Negative (Negative); Ketones,Urine Negative (Negative); Leukocyte Esterase,Urine Negative (Negative); Nitrate,Urine Negative (Negative); Protein,Urine TRACE (Negative); Urobilinogen,Urine 0.2 EU/dl (0.2)
--- NOTE | 2021-12-17 11:41 | PC.NURSE ---
lab called with critical WBC at this time result repeated and verified. notified ER of critical WBC
[2021-12-17 11:42] LABS: White Blood Count 0.8 K/mm3 (4.8-10.8)
[2021-12-17 11:43] LABS: Alanine Aminotransferase 43 U/L (12-78); Albumin Level 4.2 g/dl (3.5-5.0); Albumin/Globulin Ratio 1.6 (1.1-1.8); Alkaline Phosphatase 117 U/L (38-126); Anion Gap 10.8 mEq/L (5-15); Aspartate Amino Transferase 34 U/L (14-36); Bilirubin,Total 0.4 mg/dl (0.2-1.3); Blood Urea Nitrogen 24 mg/dl (7-17); Calcium 9.3 mg/dl (8.4-10.2); Carbon Dioxide 28 mmol/L (22.0-30.0); Chloride 104 mmol/L (98-107); Creatinine Clearance Estimated 67 mL/min (50-200); Estimated Glomerular Filt Rate 46 ml/min (>60); GFR (African American) 56 ML/MIN (>60); Globulin 2.6 g/dL (1.3-3.2); Glucose 70 mg/dl (74-100); MANUAL DIFFERENTIAL MANUAL DIFFERENTIAL (MANUAL DIFF); Potassium 3.8 mmoL/L (3.5-5.1); Sodium 139 mmol/L (136-145); Total Protein,Serum 6.8 g/dl (6.3-8.2)
[2021-12-17 11:56] LABS: RBC,Urine Occasional #/hpf (0-3); WBC,Urine Occasional #/hpf (0-3)
[2021-12-17 12:02] LABS: Lymphocytes % 76 % (10-50); Neutrophils % 24 % (42-76); Ovalocytes 1+; Total Cells Counted 25
[2021-12-17 12:03] LABS: Platelet Estimate Marked Decrease
[2021-12-17 12:04] LABS: Troponin I < 0.01 ng/ml (0.00-0.034)
--- NOTE | 2021-12-17 12:04 | HMH.EDWEAK ---
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 The time I documented below is in addition to time spent performing reported procedures but includes the following listed in this critical care notation. Medical Decision Making - Medical Records Medical records reviewed: Yes: I reviewed the patient's medical records. - Johan Inquiry Pt receiving controlled substance: No Vital Signs: 12/17/21 10:45 12/17/21 11:00 12/17/21 11:23 Temperature 98 F Temperature Source Oral Pulse Rate 69 72 Pulse Rate [Radial] 76 Respiratory Rate 16 Blood Pressure 127/76 127/82 Blood Pressure [Right Arm] 142/73 H Blood Pressure Mean 98 97 Blood Pressure Mean [Right Arm] 96 Blood Pressure Position [Right Arm] Sitting 02 Sat by Pulse Oximetry 97 96 99 Oxygen Delivery Method Room Air 12/17/21 11:30 12/17/21 12:00 12/17/21 12:30 Temperature Temperature Source Pulse Rate 70 72 66 Pulse Rate [Radial] Respiratory Rate Blood Pressure 136/82 128/86 139/82 Blood Pressure [Right Arm] Blood Pressure Mean 91 100 95 Blood Pressure Mean [Right Arm] Blood Pressure Position [Right Arm] 02 Sat by Pulse Oximetry 99 99 99 Oxygen Delivery Method - Lab Data Lab Results 12/17/21 11:17: Urine Color Yellow, Urine Appearance Clear, Urine pH 6.0, Ur Specific [place] 1.020, Urine Protein Trace, Urine Glucose (UA) Negative, Urine Ketones Negative, Urine Blood Trace-i, Urine Nitrate Negative, Urine Bilirubin Negative, Urine Urobilinogen 0.2, Ur Leukocyte Esterase Negative, Urine RBC Occasional, Urine WBC Occasional, Ur Squamous Epith Cells 3-5, Urine Bacteria None 12/17/21 11:17: SARS-CoV-2 (PCR) Not detected, Influenza A Untype (PCR) Not detected, Influenza Type B (PCR) Not detected 12/17/21 11:20: WBC 0.8 L*, RBC 2.93 L, Hgb 9.7 L, Hct 28.6 L, MCV 97.6, MCH 33.2 H, MCHC 34.1, RDW 14.9, Plt Count 67 L, MPV 8.9, Neut % (Auto) 16.5 L, Lymph % (Auto) 81.0 H, [place] % (Auto) 1.2 L, Eos % (Auto) 0.9, Baso % (Auto) 0.3, Neut # (Auto) 0.1 L*, Lymph # (Auto) 0.7, [place] # (Auto) 0.0 L, Eos # (Auto) 0.0, Baso # (Auto) 0.0, Total Counted 25, Neutrophils % (Manual) 24 L, Lymphocytes % (Manual) 76 H, Platelet Estimate Marked decrease, RBC Morphology Not Reportable, Ovalocytes 1+ 12/17/21 11:20: Sodium 139, Potassium 3.8, Chloride 104, Carbon Dioxide 28, Anion Gap 10.8, BUN 24 H, Creatinine 1.20 H, Estimated Creat Clear 67, Estimated GFR 46 L, Est GFR ( Amer) 56 L, Glucose 70 L, Calcium 9.3, Total Bilirubin 0.4, AST 34, ALT 43, Alkaline Phosphatase 117, Troponin I < 0.01, Total Protein 6.8, Albumin 4.2, Globulin 2.6, Albumin/Globulin Ratio 1.6 Result diagrams: 12/17/21 11:20 12/17/21 11:20 Orders (Tests/Meds): ED MEDICATIONS Discontinued Medications Generic Name Dose Route Start Last Admin Trade Name Freq PRN Reason Stop Dose Admin Sodium Chloride 1,000 mls @ 999 mls/hr 12/17/21 11:00 12/17/21 11:37 Sod Chlor 0.9% 1000ml Bag IV 12/17/21 12:00 999 mls/hr .Q1H1M JORDAN Administration ORDERS Category Date Time Status Troponin I Q3H Lab 12/17/21 14:00 Ordered
--- NOTE | 2021-12-17 12:56 | PC.NURSE ---
rounded on pt at this time, pt sleeping. Will continue to monitor
== END 2021-12-17 13:01 | disposition home or self-care (01) ==
PROVIDERS: Emergency Provider Emergency Medicine; PCP Internal Medicine Adolescent Medicine
DX: D70.1 Agranulocytosis secondary to cancer chemotherapy (principal); T45.1X5A Adverse effect of antineoplastic and immunosuppressive drugs, initial encounter; C83.00 Small cell B-cell lymphoma, unspecified site
CPT/HCPCS: 71045; 80053; 81001; 84484; 85007; 85025; 93005; 96360; 99284; C9803; U0003; U0005

== ENCOUNTER 2021-12-27 11:09 | Emergency (ER) | payer MEDICARE, OTHER, SELFPAY ==
[2021-12-27 11:18] VITALS: BP 126/81; PULSE 105; RESP 16; TEMP 36.8; O2SAT 99; BMI 29.0
--- NOTE | 2021-12-27 11:24 | HMH.EDUTC ---
[facility] [place] Disposition Clinical Impression: Port-A-Cath in place Disposition: Home, Self-Care Condition on Discharge: Good Additional Instructions: This was changed to a nurse visit Referrals: Les Smallwood MD [Primary Care Provider] - Medical Decision Making - Medical Records Medical records reviewed: No: I reviewed the patient's medical records. - Johan Inquiry Pt receiving controlled substance: No Vital Signs: 12/27/21 11:18 12/27/21 11:52 Temperature 98.2 F 98.2 F Temperature Source Oral Pulse Rate 105 H Pulse Rate [Left] 105 H Respiratory Rate 16 16 Blood Pressure 126/81 Blood Pressure [Right Arm] 126/81 Blood Pressure Mean [Right Arm] 96 02 Sat by Pulse Oximetry 99 [facility] [place] HPI - General Stated complaint: port flush Time Seen by Provider: 12/27/21 11:24 Mode of Arrival: Ambulatory Source of Information: Patient Limitations: No Limitations Description of Symptoms (Recalled from Triage Doc. by RN): patient comes in for a picc line flush. patient comes in with picc line in right upper arm. patient states she was discharged from yesterday and the nurses at the hospital had some trouble flushing. this morning when her family attempted to flush the line, it would not flush. HEENT Symptoms (Recalled from RN notes): No Resp Symptoms (Recalled from RN notes): No Skin Symptoms (Recalled from RN notes): No MS Symptoms (Recalled from RN notes): No Functional Status (Recalled from RN notes): n/a - History of Present Illness Provider Complaint: this was changed to a nurse visit - Related Data Home Medications Medication Instructions Recorded Confirmed Amlodipine Besylate [Amlodipine 10 mg PO DAILY 01/18/20 09/18/21 10mg Tab] Rivaroxaban [Xarelto 20mg Tablet*] 20 mg PO DAILY 01/18/20 09/18/21 hydrOXYzine pamoate [Vistaril 25mg 25 mg PO HS 01/18/20 09/18/21 capsule] lamotrigine 100 mg tablet 100 mg PO DAILY 06/11/20 09/18/21 lisinopriL [Lisinopril 20mg Tab] 20 mg PO DAILY 06/24/20 09/18/21 atorvastatin 20 mg tablet 20 mg PO DAILY tab 01/14/21 09/18/21 Naproxen 250 mg PO DAILY PRN 02/17/21 09/18/21 diazepam 10 mg tablet 10 mg PO NEEDED PRN tab 04/01/21 09/18/21 melatonin 10 mg capsule 10 mg PO HS PRN 05/12/21 09/18/21 Allergies Allergy/AdvReac Type Severity Reaction Status Date / Time No Known Allergies Allergy Verified 09/08/21 10:34 - Worker's Comp Is this a Worker's Comp case?: No [facility] History - Hepatitis A Screen Attestation statement:: This patient has been screened for Hepatitis A risk factors. I have reviewed the patient's past medical history: Yes Medical History: Reports:: Anxiety, Cancer, Deep Vein Thrombosis, Depression, Hyperlipidemia, Hypertension, Peripheral Artery Disease, Peripheral Vascular Disease Denies:: Diabetes Mellitus Type 1, Diabetes Mellitus Type 2, Gastrointestinal Bleed, Internal Pacemaker, MRSA, Pulmonary Embolism, Seizures Other Medical History: Reports: Other (Bipolar). Denies: Blood Transfusion Reaction Laterality Cases: Bilateral: Tonsillectomy Other Surgeries: Yes: Colonoscopy, Coronary Stent, Hysterectomy-Total. No: Pacemaker Amputation: No Fractures: No Comment: Iliac and Femoral Stent - Social History Smoking Status: Never smoker Alcohol Intake: never Alcohol Intake Frequency:: 0-2 drinks per day Substance Use Type: denies use Occupational Status: disabled Housing: house - Psychiatric History Pschychiatric History:: Reports:: Anxiety, Depression Family Hx:: Hypertension ROS Obtained: Yes All systems reviewed & no additional complaints Physical Exam - General General appearance: alert, in no apparent distress - Head Head exam: atraumatic, normocephalic, normal inspection - Eye Eye exam: Present: normal appearance, PERRL, EOMI - ENT ENT exam: Present: normal exam, normal oropharynx, mucous membranes moist, TM's normal bilaterally, normal external ear exam - Neck Neck exam: Present: normal inspection, full
[2021-12-27 11:52] VITALS: BP 126/81; PULSE 105; RESP 16; TEMP 36.8
== END 2021-12-27 11:53 | disposition home or self-care (01) ==
LOC: UTC 11:49
PROVIDERS: Emergency Provider Nurse Practitioner Family; PCP Internal Medicine Adolescent Medicine
DX: Z79.899 Other long term (current) drug therapy (principal); F41.9 Anxiety disorder, unspecified; I73.9 Peripheral vascular disease, unspecified; F32.A Depression, unspecified; E78.5 Hyperlipidemia, unspecified; I10 Essential (primary) hypertension; Z45.2 Encounter for adjustment and management of vascular access device; T81.9XXA Unspecified complication of procedure, initial encounter
CPT/HCPCS: 99213; G0463